=== PATIENT | male | born 1960 | race Caucasian/White ===

== ENCOUNTER 2018-03-23 21:22 | Emergency (ER) | payer SELFPAY ==
--- NOTE | 2018-03-23 22:14 | ED Physician Documentation ---
Abdominal Pain - HPI Stated Complaint: Low Abd pain for 3-4 days Chief Complaint: Abdominal Pain Additonal Information: Patient, with past medical history of Crohn's disease, presents to ED with a 3-4 day history of diffuse abdominal pain. He states he has a history of Crohn's disease with 2 bowl obstructions in the past. He states he has had 2 bowel resections. His last bowel movement was 10 days ago. He denies any blood in his stool. He admits to some chills at night. Past treatments for his Crohn's disease has been Remicaid and a weekly infusion, however, he cannot remember the name of the medication. He is currently in residential and has been without his Remicaid for several months. Onset: days ago (4) Duration: waxing, waning Timing: still present Context: denies: out of country travel Severity: moderate Quality: aching, cramping, sharp, stabbing Associated Symptoms: chills Exacerbated by: movements Relieved by: supine - ROS CONST: no problems GI/: constipation CVS/RESP: none EYES/ENT: none MS/SKIN/LYMPH: none NEURO/PSYCH: denies: headache - SOCIAL HX Smoking History: non-smoker Alcohol Use: none Drug Use: none - FAMILY HX Family History: other (crohns disease) - PAST HX Past History: other (Crohn's disease) Other History: intestinal obstruction Surgeries/Procedures: other (bowel resection) Home Medications: Ambulatory Orders Medication Instructions Recorded Ciprofloxacin HCl [Cipro] 500 mg PO BID #20 tablet 03/23/18 metroNIDAZOLE [Flagyl] 500 mg PO TID 10 Days #30 tablet 03/23/18 predniSONE [Deltasone] 20 mg PO DIRECTED #26 tablet 03/23/18 Allergies/Adverse Reactions: Allergies Allergy/AdvReac Type Severity Reaction Status Date / Time Penicillins Allergy Verified 03/23/18 21:46 - VITAL SIGNS Vital Signs: Vital Signs Temp Pulse Resp BP Pulse Ox 98.6 F 78 16 114/73 99 03/23/18 21:22 03/23/18 21:22 03/23/18 21:22 03/23/18 21:22 03/23/18 21:22 - REVIEWED ASSESSMENTS Nursing Assessment Reviewed: Yes Vitals Reviewed: Yes ED Results Lab/Radiology - Lab Results Lab Results: Lab Results 03/23/18 03/23/18 22:12 22:12 WBC 8.70 K/ul K/ul (4.00-12.00) RBC 5.51 M/ul H M/ul (3.90-5.20) Hgb 16.8 g/dL g/dL (12.0-18.0) Hct 50.7 % % (37.0-53.0) MCV 92.0 fl fl (80.0-100.0) MCH 30.5 pg pg (28.0-34.0) MCHC 33.1 g/dL g/dL (30.0-36.0) RDW 13.1 % % (11.3-14.3) Plt Count 306 K/mm3 K/mm3 (130-400) Neut % (Auto) 54.6 % % (39.0-79.0) Lymph % (Auto) 34.2 % % (16.0-50.0) Dent % (Auto) 7.1 % % (0.0-11.0) Eos % (Auto) 3.5 % % (0.0-6.8) Baso % (Auto) 0.6 (0.0-1.5) Neut # (Auto) 4.7 # k/uL # k/uL (1.4-7.7) Lymph # (Auto) 3.0 # k/uL # k/uL (0.6-4.0) Dent # (Auto) 0.6 # k/uL # k/uL (0.0-0.9) Eos # (Auto) 0.3 # k/uL # k/uL (0.0-0.6) Baso # (Auto) 0.1 # k/uL # k/uL (0.0-0.5) Sodium 139 mmol/L mmol/L (136-145) Potassium 4.3 mmol/L mmol/L (3.5-5.1) Chloride 102 mmol/L mmol/L (98-107) Carbon Dioxide 27 mmol/L mmol/L (22-30) BUN 17 mg/dL mg/dL (9-20) Creatinine 0.80 mg/dL mg/dL (0.66-1.25) Estimated Creat Clear 92 Est GFR ( Amer) > 60 (60 - ) Est GFR (Non-Af Amer) > 60 (60 - ) Glucose 84 mg/dL mg/dL (74-106) Calcium 9.1 mg/dL mg/dL (8.4-10.2) Total Bilirubin 0.5 mg/dL mg/dL (0.2-1.3) AST 114 U/L H U/L (15-46) ALT 245 U/L H U/L (13-69) Alkaline Phosphatase 75 U/L U/L (38-126) Total Protein 7.8 g/dL g/dL (6.3-8.2) Albumin 4.2 g/dL g/dL (3.5-5.0) - Radiology Radiology Impressions: CT of the abdomen and pelvis with contrast Clinical history: Right lower quadrant abdominal pain for 1 week Contrast administered: 94 mL of Omnipaque. Technique: CT of the abdomen and pelvis is performed with intravenous infusion of contrast. Sagittal and coronal reconstructions were performed by the technologist Findings: Visualized lung bases are clear. The liver is diffusely hypodense. Gallbladder is normally distended. The spleen demonstrates normal attenuation without focal defect. There is no pancreatic abnormality. The left adrenal gland is prominent suggesting hyperplasia. Bilateral renal cysts are demonstrated. There is no retroperitoneal mass or significant adenopathy. Gas and stool are present throughout the colon with increased stool in the rectosigmoid colon. There are surgical clips in the right abdomen suggesting prior appendectomy. The appendix is not identified. There is increased fluid in the small bowel consistent with gastroenteritis. There is no free intraperitoneal air or fluid. The bladder is unremarkable. Spondylitic changes are seen in the lumbar vertebrae. Impression: 1. Postoperative changes. 2. Increased stool throughout the colon particularly in the rectosigmoid colon. 3. Increased fluid the small bowel consistent with gastroenteritis. Electronically signed on Mar 23, 2018 10:59:32 PM LEATHER SORTER by: Amauri Tang - Orders Orders: ED Orders Category Date Time Status Place IV Lock 1T Care 03/23/18 21:[address] ABD & PELVIS W/ CON Stat Exams 03/23/18 Completed CBC/PLATELET/DIFF Routine Lab 03/23/18 Ordered CBC/PLATELET/DIFF Routine Lab 03/23/18 22:12 Completed CMP Routine Lab 03/23/18 22:12 Completed Ciprofloxacin HCl [Cipro] Med 03/23/18 23:11 Discontinued 500 mg PO NOW ONE Ketorolac Tromethamine [Toradol] Med 03/23/18 23:31 Discontinued 60 mg .ROUTE .STK-MED ONE methylPREDNISolone SOD SUCC [Solu-MEDROL] Med 03/23/18 23:11 Discontinued 125 mg IVP NOW ONE metroNIDAZOLE [Flagyl] Med 03/23/18 23:11 Discontinued 500 mg PO NOW ONE Abdominal Pain Physical Exam - Physical Exam General Appearance: no acute distress, alert EENT: L[place] NECK: supple RESPIRATORY: no resp distress, breath sounds normal CVS: reg rate & rhythm, heart sounds normal ABDOMEN: soft, normal bowel sounds, no distension, tenderness (throughout), guarding BACK: no CVA tenderness SKIN: warm/dry, normal color EXTREMITIES: non-tender, no edema NEURO: oriented X3, motor nml Vital Signs: Vital Signs Temp Pulse Resp BP Pulse Ox 98.6 F 78 16 114/73 99 03/23/18 21:22 03/23/18 21:22 03/23/18 21:22 03/23/18 21:22 03/23/18 21:22 Discharge Clincal Impression: Gastroenteritis Prescriptions: Ciprofloxacin HCl [Cipro] 500 mg PO BID #20 tablet metroNIDAZOLE [Flagyl] 500 mg PO TID 10 Days #30 tablet predniSONE [Deltasone] 20 mg PO DIRECTED #26 tablet Referrals: Primary Doctor,No [Primary Care Provider] - 2 Days Condition: Stable Disposition: 01 HOME, SELF-CARE Decision to Admit: NO Date of Decison to Admit: 03/23/18 Decision Time: 23:47
[2018-03-23 22:17] LABS: BASOPHILS % 0.6 (0.0-1.5); EOSINOPHILS % 3.5 % (0.0-6.8); MEAN CORPUSCULAR HEMOGLOBIN 30.5 pg (28.0-34.0); MONOCYTES % 7.1 % (0.0-11.0); NEUTROPHILS # 4.7 # k/uL (1.4-7.7)
[2018-03-23 22:27] LABS: eGFR (Non-African) > 60
--- NOTE | 2018-03-23 23:01 | Diagnostic Imaging Report ---
NERY ANDREW [facility] [address] [facility] [address] [place], [place]. [address] Report Submission Date: Mar 23, 2018 10:59:32 PM PIPE [employer]ER Patient Study Name: JENNIE HYLTON Date: Mar 23, 2018 10:33:55 PM [employer]IPE [employer] Modality Type: CT\SR Gender: M Description: CT ABD PELVIS W/ CON : 62 Institution: [facility] Physician: NERY ANDREW CT of the abdomen and pelvis with contrast Clinical history: Right lower quadrant abdominal pain for 1 week Contrast administered: 94 mL of Omnipaque. Technique: CT of the abdomen and pelvis is performed with intravenous infusion of contrast. Sagittal and coronal reconstructions were performed by the technologist Findings: Visualized lung bases are clear. The liver is diffusely hypodense. Gallbladder is normally distended. The spleen demonstrates normal attenuation without focal defect. There is no pancreatic abnormality. The left adrenal gland is prominent suggesting hyperplasia. Bilateral renal cysts are demonstrated. There is no retroperitoneal mass or significant adenopathy. Gas and stool are present throughout the colon with increased stool in the rectosigmoid colon. There are surgical clips in the right abdomen suggesting prior appendectomy. The appendix is not identified. There is increased fluid in the small bowel consistent with gastroenteritis. There is no free intraperitoneal air or fluid. The bladder is unremarkable. Spondylitic changes are seen in the lumbar vertebrae. Impression: 1. Postoperative changes. 2. Increased stool throughout the colon particularly in the rectosigmoid colon. 3. Increased fluid the small bowel consistent with gastroenteritis. Electronically signed on Mar 23, 2018 10:59:32 PM PIPE [employer]ER by: Amauri RAMOS
[2018-03-23] MEDS ORDERED: methylPREDNISolone SOD SUCC 125 MG/2 ML VIAL IVP ONE (23:11)
[2018-03-23] MEDS ORDERED: CIPROFLOXACIN HCL 500 MG TABLET PO ONE (23:11)
[2018-03-23] MEDS ORDERED: metroNIDAZOLE 500 MG TABLET PO ONE (23:11)
[2018-03-23] MEDS ORDERED: KETOROLAC TROMETHAMINE 60 MG/2 ML VIAL ONE (23:31)
[2018-03-23] MEDS ORDERED: GABAPENTIN 100 MG CAPSULE ONE (23:59)
[2018-03-24 00:23] VITALS: BP 116/72
== END 2018-03-23 23:55 | disposition home or self-care (01) ==
LOC: ED 21:22
DX: K52.9 Noninfective gastroenteritis and colitis, unspecified (principal); Z87.19 Personal history of other diseases of the digestive system
CPT/HCPCS: 74177; 80053; 85025; 96374; 99283; J2930; 96372; 99282; 99284; Q9967; S1016